=== PATIENT | male | born 1990 | race Caucasian/White ===

== ENCOUNTER 2017-10-02 23:04 | Emergency (ER) | payer OTHER ==
[~2017-10-02] VITALS: Ht 188 cm; Wt 102.1 kg
[~2017-10-02 23:04] MED LIST: NAPR550 PO; TRAACE PO
[2017-10-03] MEDS ORDERED: Cyclobenzaprine5 MG PO (02:28)
[2017-10-03] MEDS ORDERED: Norco 5-325 Ta1 EACH PO (02:28)
== END 2017-10-03 02:45 | disposition home or self-care (01) ==
LOC: ER 23:04
DX: M54.5 Low back pain (principal)
CPT/HCPCS: 36415; 72100; 96374; 96375; 99284; J1170; J1885; J2930

== ENCOUNTER 2022-04-18 19:09 | Emergency (ER) | payer OTHER ==
[~2022-04-18] VITALS: Ht 188 cm; Wt 112.5 kg
[~2022-04-18 19:09] MED LIST changes: +Cyclobenzaprine5 MG PO; +Norco 5-325 Ta1 EACH PO
== END 2022-04-18 21:21 | disposition home or self-care (01) ==
LOC: ER 19:09
DX: S49.92XA Unspecified injury of left shoulder and upper arm, initial encounter (principal); W22.8XXA Striking against or struck by other objects, initial encounter
CPT/HCPCS: 73030; A9270; J1885